=== PATIENT | female | born 1970 | race Caucasian/White ===

== ENCOUNTER 2019-08-30 18:57 | Emergency (ER) | payer MEDICAID, OTHER ==
[2019-08-30] MEDS ORDERED: IPRATROPIUM/ALBUTEROL 0.5-2.5 MG/3 ML AMPUL NEB ONE (19:03)
--- NOTE | 2019-08-30 19:06 | ER Document Report ---
ED General - General Chief Complaint: Breathing Difficulty Stated Complaint: DIFFICULTY BREATHING Time Seen by Provider: 08/30/19 19:02 - HPI Patient complains to provider of: sob Notes: patient w/ h/o copd presenting to ED for sob she reports chronic cough and no change to this she denies fever she was brought by ems and given mag and solumedrol in route she is on 2L home oxygen at home she denies a h/o pe or dvt she denies chest pain - Related Data Allergies/Adverse Reactions: Penicillins Allergy (Verified 08/30/19 19:10) Past Medical History - Social History Smoking Status: Smoker,Current Status Unk Family History: Reviewed & Not Pertinent Review of Systems - Review of Systems Constitutional: No symptoms reported EENT: No symptoms reported Cardiovascular: No symptoms reported Respiratory: Cough, Short of breath Gastrointestinal: No symptoms reported Genitourinary: No symptoms reported Female Genitourinary: No symptoms reported Musculoskeletal: No symptoms reported Skin: No symptoms reported Hematologic/Lymphatic: No symptoms reported Neurological/Psychological: No symptoms reported Physical Exam - Vital signs Vitals: Resp Pulse Ox 18 98 08/30/19 19:00 08/30/19 19:00 Interpretation: Normal - General General appearance: Appears well, Alert - HEENT Head: Normocephalic, Atraumatic Eyes: Normal Pupils: PERRL - Respiratory Respiratory status: Tachypnea Chest status: Nontender Breath sounds: Wheezing Chest palpation: Normal - Cardiovascular Rhythm: Regular Heart sounds: Normal auscultation Murmur: No - Abdominal Inspection: Normal Distension: No distension Bowel sounds: Normal Tenderness: Nontender Organomegaly: No organomegaly - Back Back: Normal, Nontender - Extremities General upper extremity: Normal inspection, Nontender, Normal color, Normal ROM, Normal temperature General lower extremity: Normal inspection, Nontender, Normal color, Normal ROM, Normal temperature, Normal weight bearing. No: Jarad's sign - Neurological Neuro grossly intact: Yes Cognition: Normal Orientation: AAOx4 [place] Coma Scale Eye Opening: Spontaneous [place] Coma Scale Verbal: Oriented [place] Coma Scale Motor: Obeys Commands Jeevan Coma Scale Total: 15 Speech: Normal Motor strength normal: LUE, RUE, LLE, RLE Sensory: Normal - Psychological Associated symptoms: Normal affect, Normal mood - Skin Skin Temperature: Warm Skin Moisture: Dry Skin Color: Normal Course - Re-evaluation Re-evalutation: 08/30/19 19:05 will give nebs and check abg while screening for other causes of sob with labs, cxr, ekg, dimer 08/30/19 21:19 workup in ED is largely unremarkable - dimer reassuring, trop/probnp reassuring, cxr clear patient feels better in ED covid is pending will dc w/ prednisone and z pack for copd exacerbation - Vital Signs Vital signs: Temp Pulse Resp BP Pulse Ox 98.7 F 100 19 119/77 96 08/30/19 19:10 08/30/19 19:10 08/30/19 19:10 08/30/19 19:10 08/30/19 19:10 - Laboratory Result Diagrams: 08/30/19 19:01 08/30/19 19:01 Laboratory results interpreted by me: 08/30/19 08/30/19 08/30/19 19:01 19:01 19:01 Hct 35.6 L RDW 14.2 H Eos % (Auto) 8.2 H Carbonic Acid 1.41 H ABG pH 7.34 L ABG pCO2 46.8 H ABG pO2 110.8 H ABG HCO3 24.5 H ABG Total CO2 25.9 H Sodium 134.8 L BUN 6 L Glucose 117 H - Diagnostic Test Radiology reviewed: Image reviewed, Reports reviewed - EKG Interpretation by Me EKG shows normal: Sinus rhythm Rate: Tachycardia Rhythm: NSR [place]/QRS: Right axis deviation Additional EKG results interpreted by me: 08/30/19 20:16 nonspecific T wave changes Discharge - Discharge Clinical Impression: COPD exacerbation Condition: Stable Disposition: HOME, SELF-CARE Instructions: Chronic Obstructive Lung Disease ([facility]), COVID-19 Guidance for Persons Under Investigation Additional Instructions: please follow up with your primary care provider as an outpatient you have been tested for COVID and you will be notified of your result as an outpatient return to the ED if your symptoms worsen in any way Prescriptions: Prednisone [Deltasone 20 mg Tablet] 3 tab PO DAILY 5 Days tablet Azithromycin [Zithromax 250 mg Tablet] 250 mg PO ASDIR PRN #6 tablet PRN Reason:
[2019-08-30 19:16] LABS: ABSOLUTE BASOPHILS # (AUTO) 0.1 10^3/uL (0.0-0.2); ABSOLUTE EOSINOPHILS # (AUTO) 0.6 10^3/uL (0.0-0.6); ABSOLUTE LYMPHOCYTES (AUTO) 1.6 10^3/uL (0.5-4.7); ABSOLUTE MONOCYTES (AUTO) 0.6 10^3/uL (0.1-1.4); ABSOLUTE NEUT (AUTO) 4.8 10^3/uL (1.7-8.2); BASOPHILS % (AUTO) 1.1 % (0-2); EOSINOPHILS % (AUTO) 8.2 % (0-6); HEMATOCRIT 35.6 % (36.0-47.0); LYMPHOCYTES % (AUTO) 20.9 % (13-45); MEAN CORPUSCULAR HEMOGLOBIN 29.8 pg (27.0-33.4); MEAN CORPUSCULAR HGB CONC 33.6 g/dL (32.0-36.0); MEAN CORPUSCULAR VOLUME 89 fl (80-97); MONOCYTES % (AUTO) 7.3 % (3-13); PLATELET COUNT 444 10^3/uL (150-450); RED BLOOD COUNT 4.03 10^6/uL (3.72-5.28); RED CELL DISTRIBUTION WIDTH 14.2 % (11.5-14.0); SEGMENTED NEUTROPHILS % (AUTO) 62.5 % (42-78); TOTAL CELLS COUNTED % (AUTO) 100 %; WHITE BLOOD COUNT 7.7 10^3/uL (4.0-10.5)
[2019-08-30 19:34] LABS: ALBUMIN 4.2 g/dL (3.5-5.0); ALKALINE PHOSPHATASE 55 U/L (38-126); ANION GAP 7 (5-19); ARTERIAL BLOOD BASE EXCESS -1.5 mmol/L; ARTERIAL BLOOD FIO2 3L; ARTERIAL BLOOD H2CO3 1.41 mmol/L (1.05-1.35); ARTERIAL BLOOD HCO3 24.5 mmol/L (20-24); ARTERIAL BLOOD O2 SATURATION 97.8 % (94-98); ARTERIAL BLOOD PCO2 46.8 mmHg (35-45); ARTERIAL BLOOD PH 7.34 (7.35-7.45); ARTERIAL BLOOD PO2 110.8 mmHg (80-100); ARTERIAL BLOOD TOTAL CO2 25.9 mmol/L (21-25); ASPARTATE AMINO TRANSFERASE 29 U/L (14-36); BILIRUBIN,TOTAL 0.4 mg/dL (0.2-1.3); BLOOD UREA NITROGEN 6 mg/dL (7-20); CALCIUM 8.9 mg/dL (8.4-10.2); CARBON DIOXIDE 27 mmol/L (22-30); CHLORIDE 101 mmol/L (98-107); GLUCOSE 117 mg/dL (75-110); POTASSIUM 4.1 mmol/L (3.6-5.0)
[2019-08-30 19:46] LABS: NT PRO BNP 79 pg/mL (<125); TROPONIN I < 0.012 ng/mL
--- NOTE | 2019-08-30 20:31 | RADIOLOGY REPORT (SQ) ---
EXAM DESCRIPTION: XR CHEST 1 VIEW COMPLETED DATE/TME: 08/30/2019 00:00 CLINICAL HISTORY: 49 years, Female, cough COMPARISON: None. NUMBER OF VIEWS: One TECHNIQUE: Single frontal view of the chest was obtained portably LIMITATIONS: None. FINDINGS: Cardiac and mediastinal contours are normal. Lungs are clear. No pleural effusion or pneumothorax. Suspect bullous emphysematous changes about the right upper lung zone. Surgical clips project over the right upper quadrant, indicating prior cholecystectomy. IMPRESSION: No acute disease. copyright 2010 [employer]- All Rights Reserved
[2019-08-30 22:05] VITALS: BP 103/90
[2019-08-30] MEDS ORDERED: ALBUTEROL SULFATE HFA (90 MCG/PUFF) 8 GM MDI IH ONE (22:17)
--- NOTE | 2019-08-31 07:57 | EKG REPORT ---
SEVERITY:- ABNORMAL ECG - SINUS TACHYCARDIA BORDERLINE RIGHT AXIS DEVIATION NONSPECIFIC T ABNORMALITIES, LATERAL LEADS : Confirmed by: Ian Baez 31-Aug-2019 07:56:18
== END 2019-08-30 22:42 | disposition home or self-care (01) ==
LOC: EDBD → ER 18:57
DX: J44.1 Chronic obstructive pulmonary disease with (acute) exacerbation (principal); Z20.828 Contact with and (suspected) exposure to other viral communicable diseases; Z88.0 Allergy status to penicillin
CPT/HCPCS: 93005; 94640; 99285; 36415; 82803; 85025; 87635; 80053; 84484; 85379; 83880; 71045; 93010; J3490; C9803

== ENCOUNTER 2020-01-08 11:28 | Inpatient (IN) | payer MEDICAID, OTHER ==
[2020-01-08 12:12] LABS: ABSOLUTE BASOPHILS # (AUTO) 0.1 10^3/uL (0.0-0.2); ABSOLUTE LYMPHOCYTES (AUTO) 1.5 10^3/uL (0.5-4.7); ABSOLUTE MONOCYTES (AUTO) 0.9 10^3/uL (0.1-1.4); ABSOLUTE NEUT (AUTO) 7.1 10^3/uL (1.7-8.2); BASOPHILS % (AUTO) 0.9 % (0-2); EOSINOPHILS % (AUTO) 9.5 % (0-6); HEMATOCRIT 32.2 % (36.0-47.0); HEMOGLOBIN 10.4 g/dL (12.0-15.5); LYMPHOCYTES % (AUTO) 14.2 % (13-45); MEAN CORPUSCULAR HEMOGLOBIN 28.2 pg (27.0-33.4); MEAN CORPUSCULAR HGB CONC 32.4 g/dL (32.0-36.0); MEAN CORPUSCULAR VOLUME 87 fl (80-97); MONOCYTES % (AUTO) 8.5 % (3-13); PLATELET COUNT 536 10^3/uL (150-450); RED BLOOD COUNT 3.71 10^6/uL (3.72-5.28); SEGMENTED NEUTROPHILS % (AUTO) 66.9 % (42-78); TOTAL CELLS COUNTED % (AUTO) 100 %; WHITE BLOOD COUNT 10.7 10^3/uL (4.0-10.5)
[2020-01-08 12:34] LABS: ALKALINE PHOSPHATASE 49 U/L (38-126); ANION GAP 5 (5-19); ASPARTATE AMINO TRANSFERASE 28 U/L (14-36); BILIRUBIN,DIRECT 0.2 mg/dL (0.0-0.4); BILIRUBIN,TOTAL 0.3 mg/dL (0.2-1.3); BLOOD UREA NITROGEN 5 mg/dL (7-20); CALCIUM 8.7 mg/dL (8.4-10.2); CARBON DIOXIDE 33 mmol/L (22-30); CHLORIDE 97 mmol/L (98-107); CREATINE KINASE 294 U/L (30-135); GLUCOSE 263 mg/dL (75-110); POTASSIUM 4.3 mmol/L (3.6-5.0); TOTAL PROTEIN 6.7 g/dL (6.3-8.2)
[2020-01-08 12:45] LABS: CREATINE KINASE MB 5.34 ng/mL (<4.55)
[2020-01-08 12:50] LABS: TROPONIN I < 0.012 ng/mL
--- NOTE | 2020-01-08 12:57 | RADIOLOGY REPORT (SQ) ---
EXAM DESCRIPTION: CHEST SINGLE VIEW IMAGES COMPLETED DATE/TIME: 01/08/2020 12:28 pm REASON FOR STUDY: sob COMPARISON: AP chest 08/30/2019 EXAM PARAMETERS: NUMBER OF VIEWS: One view. TECHNIQUE: Single frontal radiographic view of the chest acquired. RADIATION DOSE: NA LIMITATIONS: None. FINDINGS: LUNGS AND PLEURA: Upper lobes are hyperinflated and hyperlucent from obstructive disease. Pulmonary vascular markings are crowded at the. No focal infiltrates. No pleural effusion. No pneu mothorax. MEDIASTINUM AND HILAR STRUCTURES: No masses. Contour normal. HEART AND VASCULAR STRUCTURES: Heart normal in size. Normal vasculature. BONES: No acute findings. HARDWARE: None in the chest. OTHER: No other significant finding. IMPRESSION: Obstructive lung disease. No acute infiltrates. TECHNICAL DOCUMENTATION: JOB ID: [id number] 2010 [employer]- All Rights Reserved Reading location - IP/workstation name: [id number]
--- NOTE | 2020-01-08 13:39 | EKG REPORT ---
SEVERITY:- BORDERLINE ECG - SINUS TACHYCARDIA BORDERLINE RIGHT AXIS DEVIATION BORDERLINE PROLONGED QT INTERVAL : Confirmed by: Nilo Jeffers MD 08-Jan-2020 13:38:39
--- NOTE | 2020-01-08 13:44 | ER Document Report ---
Entered by LIZETTE SILVA SCRIBE 01/08/20 1220 Acting as scribe for:ADAN MURPHY MD ED Respiratory Problem - General Stated Complaint: DIFFICULTY BREATHING Time Seen by Provider: 01/08/20 12:12 Information source: Patient Notes: This 49 year old female patient presents to the emergency department today with complaints of shortness of breath which began at 2:30 AM this morning. Patient states she has had a dry non-productive cough for a month but this hasn't changed at all recently. Patient is a former smoker, stating she stopped in april of 2018. - Related Data Allergies/Adverse Reactions: Penicillins Allergy (Verified 01/08/20 12:45) Past Medical History - General Information source: Patient - Social History Smoking Status: Former Smoker Cigarette use (# per day): No Frequency of alcohol use: None Drug Abuse: None Lives with: Family Family History: Reviewed & Not Pertinent Pulmonary Medical History: Reports: Hx COPD Surgical Hx: Negative Review of Systems - Review of Systems Constitutional: No symptoms reported EENT: No symptoms reported Cardiovascular: No symptoms reported Respiratory: See HPI, Cough, Short of breath Gastrointestinal: No symptoms reported Genitourinary: No symptoms reported Female Genitourinary: No symptoms reported Musculoskeletal: No symptoms reported Skin: No symptoms reported Hematologic/Lymphatic: No symptoms reported Neurological/Psychological: No symptoms reported -: Yes All other systems reviewed and negative Physical Exam - Vital signs Vitals: Resp Pulse Ox 20 100 01/08/20 11:31 01/08/20 11:31 - Notes Notes: Physical Exam: General: Alert, appears short of breath. HEENT: Normocephalic. Atraumatic. PERRL. Extraocular movements intact. Oropharynx clear. Neck: Supple. Non-tender. Respiratory: Moderate respiratory distress. Tight diffuse inspiratory and ex piratory wheezing bilaterally. Sitting in tripod position with BiPAP on. Cardiovascular: Regular rate and rhythm. Abdominal: Normal Inspection. Non-tender. No distension. Normal Bowel Sounds. Back: No gross abnormalities. Extremities: Moves all four extremities. Upper extremities: Normal inspection. Normal ROM. Lower extremities: Normal inspection. No edema. Normal ROM. Neurological: Normal cognition. AAOx4. Normal speech. Psychological: Normal affect. Normal Mood. Skin: Warm. Dry. Normal color. Course - Re-evaluation Re-evalutation: 01/08/20 15:16 Patient continues in tripod position with BiPAP on, is still retracting diffuse tight wheezes and has not really improved much. Her oxygen saturation is 88%. Her BiPAP setting was FiO2 32%, I increased it to 40%. I am still waiting for the ABG to be collected that was ordered earlier. - Vital Signs Vital signs: Temp Pulse Resp BP Pulse Ox 97.7 F 92 12 145/73 H 100 01/10/20 00:05 01/10/20 04:56 01/10/20 04:56 01/10/20 00:05 01/10/20 04:56 - Laboratory Result Diagrams: 01/09/20 04:45 01/09/20 04:45 Laboratory results interpreted by me: 01/08/20 01/08/20 01/08/20 11:43 11:43 11:43 WBC 10.7 H RBC 3.71 L Hgb 10.4 L Hct 32.2 L RDW 16.0 H Plt Count 536 H Eos % (Auto) 9.5 H Absolute Eos (auto) 1.0 H Carbonic Acid ABG pH ABG pCO2 ABG pO2 ABG HCO3 ABG Total CO2 ABG O2 Saturation Sodium 134.6 L Chloride 97 L Carbon Dioxide 33 H BUN 5 L Creatinine 0.50 L Glucose 263 H Hemoglobin A1c % Creatine Kinase 294 H CK-MB (CK-2) 5.34 H 01/08/20 01/08/20 11:43 15:36 WBC RBC Hgb Hct RDW Plt Count Eos % (Auto) Absolute Eos (auto) Carbonic Acid 1.83 H ABG pH 7.31 L ABG pCO2 60.7 H ABG pO2 142.1 H ABG HCO3 29.5 H ABG Total CO2 31.4 H ABG O2 Saturation 98.5 H Sodium Chloride Carbon Dioxide BUN Creatinine Glucose Hemoglobin A1c % 4.4 L Creatine Kinase CK-MB (CK-2) - Diagnostic Test Radiology reviewed: Image reviewed, Reports reviewed - Chest x-ray shows COPD with no acute changes. There is some diaphragm flattening. - EKG Interpretation by Me EKG shows normal: Sinus rhythm, [place], QRS Complexes, ST-T Waves. abnormal: Intervals - Borderline prolonged QT interval Rate: Tachycardia - 112 [place]/QRS: Right axis deviation - Consults Dr. Hinds Time consulted: 16:15 Consulted provider: will come to ER Critical Care Note - Critical Care Note Total time excluding time spent on procedures (mins): 45 Comments: At least 45 minutes spent examining the patient, reviewing past and present lab work. Managing the emergent BiPAP. Multiple reevaluations for response to treatment. Time spent with consultation with hospitalist service to get the patient admitted to the hospital. Discharge - Discharge Clinical Impression: Acute exacerbation of chronic obstructive pulmonary disease (COPD), Acute on chronic respiratory failure with hypoxia and hypercapnia Condition: Fair Disposition: ADMITTED INPATIENT Admitting Provider: Lizet (Hospitalist) Unit Admitted: IMCU I personally performed the services described in the documentation, reviewed and edited the documentation which was dictated to the scribe in my presence, and it accurately records my words and actions.
[2020-01-08] MEDS ORDERED: IPRATROPIUM/ALBUTEROL 0.5-2.5 MG/3 ML AMPUL NEB ONE (13:45)
[2020-01-08] MEDS ORDERED: ALBUTEROL SULFATE 0.083% NEB 2.5 MG/3 ML AMPUL NEB ONE (15:15)
[2020-01-08 15:47] LABS: ARTERIAL BLOOD FIO2 40%; ARTERIAL BLOOD H2CO3 1.83 mmol/L (1.05-1.35); ARTERIAL BLOOD HCO3 29.5 mmol/L (20-24); ARTERIAL BLOOD O2 SATURATION 98.5 % (94-98); ARTERIAL BLOOD PCO2 60.7 mmHg (35-45); ARTERIAL BLOOD PH 7.31 (7.35-7.45); ARTERIAL BLOOD PO2 142.1 mmHg (80-100); ARTERIAL BLOOD TOTAL CO2 31.4 mmol/L (21-25)
[2020-01-08] MEDS ORDERED: PROMETHAZINE HCL INJ 25 MG/1 ML VIAL IV PRN (17:08)
[2020-01-08] MEDS ORDERED: MAG HYDROX/AL HYDROX/SIMETH SUSP 30 ML UDCUP PO PRN (17:08)
[2020-01-08] MEDS ORDERED: ACETAMINOPHEN 325 MG TABLET PO PRN (17:08)
[2020-01-08] MEDS ORDERED: MAGNESIUM HYDROXIDE SUSP 30 ML UDCUP PO PRN (17:08)
[2020-01-08] MEDS ORDERED: LORAZEPAM INJ 2 MG/1 ML VIAL IV PRN (17:29)
--- NOTE | 2020-01-08 17:34 | PDOC H&P ---
History of Present Illness Admission Date/PCP: 01/08/20 16:43 Patient complains of: Markedly increased shortness of breath History of Present Illness: BEN ADRIAN is a 49 year old female with severe COPD that history of heart disease states that since her discharge from [facility] in mid November she has had a cough and has not felt much better. At 230 this morning she began to have severe shortness of breath. She has coughing but it is not productive. She denies fever or chills. Chest x-ray shows very hyperinflated lungs but no infiltrates. White blood cell count is only 10.7. She is afebrile. She will be admitted for acute exacerbation of COPD. Past Medical History Cardiac Medical History: Reports: Hypertension Pulmonary Medical History: Reports: Asthma, Chronic Obstructive Pulmonary Disease (COPD) Psychiatric Medical History: Reports: Depression, Tobacco Dependency Past Surgical History Past Surgical History: Reports: Cholecystectomy, Tubal Ligation Social History Information Source: Patient, [facility] Records Lives with: Family Smoking Status: Former Smoker Electronic Cigarette use?: No Frequency of Alcohol Use: None Hx Recreational Drug Use: No Hx Prescription Drug Abuse: No - Advance Directive Resuscitation Status: Do Not Resuscitate Family History Family History: CAD, COPD, CVA, Hypertension, Malignancy Parental Family History Reviewed: Yes Children Family History Reviewed: Yes Sibling(s) Family History Reviewed.: Yes Medication/Allergy Home Medications: Albuterol Sulfate [Albuterol Sulfate Hfa] 2 puff IH Q4HP PRN 01/08/20 Budesonide/Formoterol Fumarate [Symbicort Hfa 160-4.5 Mcg Inhaler 6 gm] 2 puff IH Q12 01/08/20 Cetirizine HCl [Zyrtec 10 mg Tablet] 10 mg PO DAILY 01/08/20 Escitalopram Oxalate [Lexapro 10 mg Tablet] 20 mg PO QHS 01/08/20 Fluticasone Propionate [Flonase Nasal [place] 50 Mcg/[place] 16 gm] 2 spray NAREB DAILY 01/08/20 Ipratropium/Albuterol Sulfate [Duoneb 3 ml Ampul] 3 ml NEB RTQ4HP PRN 01/08/20 Lisinopril [Prinivil 5 mg Tablet] 5 mg PO DAILY 01/08/20 Montelukast Sodium [Singulair 10 mg Tablet] 10 mg PO QHS 01/08/20 Roflumilast [Daliresp 500 Mcg Tablet] 500 mcg PO DAILY 01/08/20 Tiotropium [place] [Spiriva Handihaler 5 Cap/Kit (18 Mcg/Cap)] 1 cap IH DAILY 01/08/20 Allergies/Adverse Reactions: Penicillins Allergy (Verified 01/08/20 12:45) Review of Systems All systems: reviewed and no additional remarkable complaints except as stated Cardiovascular: PRESENT: palpitations Respiratory: PRESENT: cough, dyspnea Psychiatric: PRESENT: depression Physical Exam Vital Signs: Temp Pulse Resp BP Pulse Ox 97.9 F 19 135/98 H 97 01/08/20 11:40 01/08/20 15:57 01/08/20 14:00 01/08/20 15:57 Intake & Output 01/07/20 01/08/20 01/09/20 06:59 06:59 06:59 Weight 46.266 kg General appearance: PRESENT: cooperative, severe distress, thin, well-developed Head exam: PRESENT: atraumatic, normocephalic Eye exam: PRESENT: conjunctival injection, conjunctiva pink. ABSENT: scleral icterus Ear exam: PRESENT: normal external ear exam. ABSENT: bleeding, drainage Mouth exam: PRESENT: other - BiPAP mask in place Neck exam: ABSENT: carotid bruit, JVD, lymphadenopathy Respiratory exam: PRESENT: accessory muscle use, prolonged expiratory phas, symm etrical, tachypnea, wheezes. ABSENT: rales, rhonchi Cardiovascular exam: PRESENT: +S1, +S2, tachycardia. ABSENT: bradycardia, diastolic murmur, irregular rhythm, systolic murmur GI/Abdominal exam: PRESENT: normal bowel sounds, soft. ABSENT: distended, guarding, tenderness Rectal exam: PRESENT: deferred Gentrourinary exam: ABSENT: indwelling catheter Extremities exam: ABSENT: calf tenderness, joint swelling, pedal edema Musculoskeletal exam: PRESENT: ambulatory, other - Decreased muscle mass. ABSENT: deformity, dislocation Neurological exam: PRESENT: alert, awake, oriented to person, oriented to place, oriented to time, oriented to situation, CN II-XII grossly intact. ABSENT: altered Psychiatric exam: PRESENT: appropriate affect. ABSENT: agitated, anxious Focused psych exam: ABSENT: delusional, paranoid, restlessness Skin exam: PRESENT: dry, normal color, warm. ABSENT: rash Results Laboratory Results: 01/08/20 11:43 01/08/20 11:43 01/08/20 01/08/20 01/08/20 11:43 11:43 15:36 WBC 10.7 H RBC 3.71 L Hgb 10.4 L Hct 32.2 L MCV 87 MCH 28.2 MCHC 32.4 RDW 16.0 H Plt Count 536 H Seg Neutrophils % 66.9 Carbonic Acid 1.83 H HCO3/H2CO3 Ratio 16:1 ABG pH 7.31 L ABG pCO2 60.7 H ABG pO2 142.1 H ABG HCO3 29.5 H ABG O2 Saturation 98.5 H ABG Base Excess 2.0 FiO2 40% Sodium 134.6 L Potassium 4.3 Chloride 97 L Carbon Dioxide 33 H Anion Gap 5 BUN 5 L Creatinine 0.50 L Est GFR ( Amer) > 60 Glucose 263 H Calcium 8.7 Total Bilirubin 0.3 AST 28 Alkaline Phosphatase 49 Total Protein 6.7 Albumin 4.0 01/08/20 01/08/20 11:43 11:43 Creatine Kinase 294 H CK-MB (CK-2) 5.34 H Troponin I < 0.012 Impressions: Chest X-Ray 01/08/20 11:35 IMPRESSION: Obstructive lung disease. No acute infiltrates. Assessment and Plan - Diagnosis (1) Acute on chronic respiratory failure with hypoxia and hypercapnia Is this a current diagnosis for this admission?: Yes (2) Acute exacerbation of chronic obstructive pulmonary disease (COPD) Is this a current diagnosis for this admission?: Yes (3) Depression Qualifiers: Depression Type: unspecified Qualified Code(s): F32.9 - Major depressive disorder, single episode, unspecified Is this a current diagnosis for this admission?: Yes (4) Hypertension Qualifiers: Hypertension type: essential hypertension Qualified Code(s): I10 - Essential (primary) hypertension Is this a current diagnosis for this admission?: Yes - Plan Summary Summary: Acute on chronic respiratory failure with hypoxia and hypercapnia Acute exacerbation of chronic obstructive pulmonary disease Hypertension Depression Hyperglycemia Anemia 01/08/2020 Patient was just discharged in November for a similar illness. Continue BiPAP and try and wean back to her baseline 3 L nasal cannula oxygen Nebulizer treatments both scheduled and as needed. Intravenous steroids Continue lisinopril for hypertension Continue Lexapro for depression Glucose was 263 but her hemoglobin A1c was only 4.4. Possibly related to a dextrose containing fluid that was administered. Anemia-hemoglobin is 10.4. Will check anemia studies. - Time Time Spent with patient: 35 or more minutes Medications reviewed and adjusted accordingly: Yes Anticipated Discharge Disposition: Home with Home Health Anticipated Discharge Timeframe: Unknown - Inpatient Certification Based on my medical assessment, after consideration of the patient's comorbidities, presenting symptoms, or acuity I expect that the services needed warrant INPATIENT care.: Yes I certify that my determination is in accordance with my understanding of Medicare's requirements for reasonable and necessary INPATIENT services [42 CFR 412.3e].: Yes Medical Necessity: Need Close Monitoring Due to Risk of Patient Decompensation, Need For IV Fluids, Need For Continuous Telemetry Monitoring, Need for Nebulizer Therapy and Monitoring of Response Post Hospital Care: D/C or Transfer Summary
[2020-01-08] MEDS: IPRATROPIUM BROMIDE 0.02% NEB 0.5 MG/2.5 ML AMPUL NEB SCH (20:57)
[2020-01-08] MEDS: BUDESONIDE NEB 0.5 MG/2 ML AMPUL NEB SCH (20:57)
[2020-01-08] MEDS: LEVALBUTEROL HCL NEB 1.25 MG/3 ML AMPUL NEB SCH (20:57)
[2020-01-08] MEDS: HEPARIN SOD (PORCINE) 5,000 UNIT/ML 1 ML VIAL SUBCUT SCH (23:32)
[2020-01-08] MEDS: MONTELUKAST SODIUM 10 MG TABLET PO SCH (23:32)
[2020-01-08] MEDS: ESCITALOPRAM OXALATE 10 MG TABLET PO SCH (23:33)
[2020-01-08] MEDS: FAMOTIDINE 20 MG TABLET PO SCH (23:34)
[2020-01-08] MEDS: METHYLPREDNISOLONE INJ 40 MG/1 ML SDV IV SCH (23:35)
[2020-01-08] MEDS: RINGERS SOLUTION,LACTATED 1,000 ML IV PRN (23:35)
[2020-01-09] MEDS: IPRATROPIUM BROMIDE 0.02% NEB 0.5 MG/2.5 ML AMPUL NEB SCH ×6 (00:23→19:59)
[2020-01-09] MEDS: LEVALBUTEROL HCL NEB 1.25 MG/3 ML AMPUL NEB SCH ×6 (00:23→19:59)
[2020-01-09] MEDS: MORPHINE SULFATE 10 MG/ML INJ IV PRN ×2 (02:49→22:46)
[2020-01-09 03:04] LABS: APPEARANCE,URINE SLIGHTLY-CLOUDY; BILIRUBIN,URINE NEGATIVE (NEGATIVE); COLOR,URINE YELLOW; GLUCOSE, URINE NEGATIVE (NEGATIVE); KETONES,URINE 20 mg/dL (NEGATIVE); LEUKOCYTE ESTERASE,URINE NEGATIVE (NEGATIVE); NITRITE,URINE NEGATIVE (NEGATIVE); PROTEIN,URINE 30 mg/dL (NEGATIVE); URINE SPECIFIC GRAVITY 1.009; UROBILINOGEN,URINE NEGATIVE mg/dL (<2.0)
[2020-01-09] MEDS: HEPARIN SOD (PORCINE) 5,000 UNIT/ML 1 ML VIAL SUBCUT SCH ×3 (05:32→22:47)
[2020-01-09] MEDS: METHYLPREDNISOLONE INJ 40 MG/1 ML SDV IV SCH ×3 (05:33→22:46)
[2020-01-09 05:49] LABS: HEMATOCRIT 31.2 % (36.0-47.0); HEMOGLOBIN 10.4 g/dL (12.0-15.5); MEAN CORPUSCULAR HEMOGLOBIN 28.4 pg (27.0-33.4); MEAN CORPUSCULAR HGB CONC 33.5 g/dL (32.0-36.0); MEAN CORPUSCULAR VOLUME 85 fl (80-97); PLATELET COUNT 464 10^3/uL (150-450); RED BLOOD COUNT 3.67 10^6/uL (3.72-5.28); RED CELL DISTRIBUTION WIDTH 15.9 % (11.5-14.0); WHITE BLOOD COUNT 6.7 10^3/uL (4.0-10.5)
[2020-01-09 06:09] LABS: ANION GAP 7 (5-19); BLOOD UREA NITROGEN 7 mg/dL (7-20); CALCIUM 9.4 mg/dL (8.4-10.2); CARBON DIOXIDE 32 mmol/L (22-30); CHLORIDE 99 mmol/L (98-107); GLUCOSE 127 mg/dL (75-110); POTASSIUM 5.1 mmol/L (3.6-5.0)
[2020-01-09] MEDS: BUDESONIDE NEB 0.5 MG/2 ML AMPUL NEB SCH ×2 (08:08→19:59)
[2020-01-09] MEDS: LISINOPRIL 10 MG TABLET PO SCH (11:28)
[2020-01-09] MEDS: ROFLUMILAST 500 MCG TABLET PO SCH (11:28)
[2020-01-09] MEDS: FAMOTIDINE 20 MG TABLET PO SCH ×2 (11:28→22:46)
[2020-01-09] MEDS: CETIRIZINE 10 MG TABLET PO SCH (11:28)
[2020-01-09] MEDS: FLUTICASONE NASAL SPRAY 50 MCG/SPRY 120 SPRAY/16 GM NAREB SCH (11:55)
--- NOTE | 2020-01-09 12:22 | PDOC PROGRESS REPORT ---
Subjective Date:: 01/09/20 Subjective:: Still tachypneic but she reports that she is feeling slightly better. FiO2 is d own to 30% on BiPAP. Reason For Visit: EXACERATION OF COPD,ACUTE ON CHRONIC RESPIRATORY Physical Exam Vital Signs: Temp Pulse Resp BP Pulse Ox 97.5 F 115 H 16 178/85 H 93 01/09/20 09:15 01/09/20 09:15 01/09/20 09:15 01/09/20 09:15 01/09/20 09:15 Intake & Output 01/08/20 01/09/20 01/10/20 06:59 06:59 06:59 Intake Total 120 Balance 120 Weight 46.2 kg General appearance: PRESENT: mild distress - Mild to moderate distress, thin, well-developed Head exam: PRESENT: atraumatic, normocephalic Ear exam: PRESENT: normal external ear exam. ABSENT: bleeding, drainage Mouth exam: PRESENT: other - BiPAP mask in place Neck exam: ABSENT: carotid bruit, JVD, lymphadenopathy Respiratory exam: PRESENT: symmetrical, tachypnea, wheezes. ABSENT: chest wall tenderness, rales, rhonchi Cardiovascular exam: PRESENT: +S1, +S2, tachycardia. ABSENT: bradycardia, diastolic murmur, irregular rhythm, systolic murmur GI/Abdominal exam: PRESENT: normal bowel sounds, soft. ABSENT: distended, guarding, tenderness Rectal exam: PRESENT: deferred Gentrourinary exam: ABSENT: indwelling catheter Extremities exam: ABSENT: pedal edema Musculoskeletal exam: PRESENT: other - Decreased muscle mass Neurological exam: PRESENT: alert, awake, oriented to person, oriented to place, oriented to time, oriented to situation, CN II-XII grossly intact, other - No re sting tremor. ABSENT: altered Psychiatric exam: PRESENT: appropriate affect. ABSENT: agitated, anxious Focused psych exam: ABSENT: delusional, paranoid, restlessness Skin exam: PRESENT: dry, normal color, warm. ABSENT: rash Results Laboratory Results: 01/09/20 04:45 01/09/20 04:45 01/08/20 01/08/20 01/09/20 11:43 15:36 01:45 WBC RBC Hgb Hct MCV MCH MCHC RDW Plt Count Carbonic Acid 1.83 H HCO3/H2CO3 Ratio 16:1 ABG pH 7.31 L ABG pCO2 60.7 H ABG pO2 142.1 H ABG HCO3 29.5 H ABG O2 Saturation 98.5 H ABG Base Excess 2.0 FiO2 40% Sodium 134.6 L Potassium 4.3 Chloride 97 L Carbon Dioxide 33 H Anion Gap 5 BUN 5 L Creatinine 0.50 L Est GFR ( Amer) > 60 Glucose 263 H Calcium 8.7 Magnesium Total Bilirubin 0.3 AST 28 Alkaline Phosphatase 49 Total Protein 6.7 Albumin 4.0 TSH Urine Color YELLOW Urine Appearance SLIGHTLY-CLOUDY Urine pH 7.0 Ur Specific [place] 1.009 Urine Protein 30 H Urine Glucose (UA) NEGATIVE Urine Ketones 20 H Urine Blood LARGE H Urine Nitrite NEGATIVE Ur Leukocyte Esterase NEGATIVE Urine WBC (Auto) 3 Urine RBC (Auto) 0 01/09/20 01/09/20 01/09/20 04:45 04:45 04:45 WBC 6.7 RBC 3.67 L Hgb 10.4 L Hct 31.2 L MCV 85 MCH 28.4 MCHC 33.5 RDW 15.9 H Plt Count 464 H Carbonic Acid HCO3/H2CO3 Ratio ABG pH ABG pCO2 ABG pO2 ABG HCO3 ABG O2 Saturation ABG Base Excess FiO2 Sodium 138.2 Potassium 5.1 H Chloride 99 Carbon Dioxide 32 H Anion Gap 7 BUN 7 Creatinine 0.52 Est GFR ( Amer) > 60 Glucose 127 H Calcium 9.4 Magnesium 2.4 H Total Bilirubin AST Alkaline Phosphatase Total Protein Albumin TSH 0.07 L Urine Color Urine Appearance Urine pH Ur Specific [place] Urine Protein Urine Glucose (UA) Urine Ketones Urine Blood Urine Nitrite Ur Leukocyte Esterase Urine WBC (Auto) Urine RBC (Auto) 01/08/20 01/08/20 11:43 11:43 Creatine Kinase 294 H CK-MB (CK-2) 5.34 H Troponin I < 0.012 Impressions: Chest X-Ray 01/08/20 11:35 IMPRESSION: Obstructive lung disease. No acute infiltrates. Assessment and Plan - Diagnosis (1) Acute on chronic respiratory failure with hypoxia and hypercapnia Is this a current diagnosis for this admission?: Yes (2) Acute exacerbation of chronic obstructive pulmonary disease (COPD) Is this a current diagnosis for this admission?: Yes (3) Depression Qualifiers: Depression Type: unspecified Qualified Code(s): F32.9 - Major depressive disorder, single episode, unspecified Is this a current diagnosis for this admission?: Yes (4) Hypertension Qualifiers: Hypertension type: essential hypertension Qualified Code(s): I10 - Essential (primary) hypertension Is this a current diagnosis for this admission?: Yes (5) Hyperthyroidism Is this a current diagnosis for this admission?: Yes (6) Hyperkalemia Is this a current diagnosis for this admission?: Yes - Plan Summary Summary: Acute on chronic respiratory failure with hypoxia and hypercapnia Acute exacerbation of chronic obstructive pulmonary disease Hypertension Depression Hyperglycemia Anemia Hyperkalemia 01/08/2020 Patient was just discharged in November for a similar illness. Continue BiPAP and try and wean back to her baseline 3 L nasal cannula oxygen Nebulizer treatments both scheduled and as needed. Intravenous steroids Continue lisinopril for hypertension Continue Lexapro for depression Glucose was 263 but her hemoglobin A1c was only 4.4. Possibly related to a dextrose containing fluid that was administered. Anemia-hemoglobin is 10.4. Will check anemia studies. 01/09/2020 Continue nebulizers and steroids. Continue to wean BiPAP as tolerated. Goal is 3 L/min nasal cannula which is her home oxygen therapy. Blood pressure is still elevated. We will add hydrochlorothiazide to the lisinopril. Also will discontinue the IV fluids. Hyperglycemia-glucose is down to 127. Likely a stress reaction and the steroids. Continue to monitor. Potassium is 5.1. This may be due to the IV fluids. Will discontinue IV fluids and monitor. Continue Lexapro for depression. TSH was 0.07. I have discussed this with the patient and will start methimaz ole. - Time Time Spent with patient: 15-24 minutes Medications reviewed and adjusted accordingly: Yes Anticipated Discharge Disposition: Home, Self Care Anticipated Discharge Timeframe: within 72 hours
[2020-01-09 13:36] LABS: ARTERIAL BLOOD BASE EXCESS 0 mmol/L; ARTERIAL BLOOD FIO2 30%; ARTERIAL BLOOD H2CO3 1.45 mmol/L (1.05-1.35); ARTERIAL BLOOD HCO3 25.9 mmol/L (20-24); ARTERIAL BLOOD O2 SATURATION 96.5 % (94-98); ARTERIAL BLOOD PCO2 48.3 mmHg (35-45); ARTERIAL BLOOD PH 7.35 (7.35-7.45); ARTERIAL BLOOD PO2 91.2 mmHg (80-100); ARTERIAL BLOOD TOTAL CO2 27.4 mmol/L (21-25)
[2020-01-09] MEDS: METHIMAZOLE 5 MG TABLET PO SCH ×2 (13:51→22:46)
[2020-01-09] MEDS: RINGERS SOLUTION,LACTATED 1,000 ML IV PRN (15:46)
[2020-01-09] MEDS: MONTELUKAST SODIUM 10 MG TABLET PO SCH (22:46)
[2020-01-09] MEDS: ESCITALOPRAM OXALATE 10 MG TABLET PO SCH (22:46)
[2020-01-10] MEDS: LEVALBUTEROL HCL NEB 1.25 MG/3 ML AMPUL NEB SCH ×6 (00:59→20:22)
[2020-01-10] MEDS: IPRATROPIUM BROMIDE 0.02% NEB 0.5 MG/2.5 ML AMPUL NEB SCH ×6 (00:59→20:22)
[2020-01-10 06:20] LABS: BLOOD UREA NITROGEN 12 mg/dL (7-20); CALCIUM 9.2 mg/dL (8.4-10.2); CARBON DIOXIDE 34 mmol/L (22-30); CHLORIDE 100 mmol/L (98-107); GLUCOSE 123 mg/dL (75-110); POTASSIUM 4.6 mmol/L (3.6-5.0)
[2020-01-10] MEDS: METHYLPREDNISOLONE INJ 40 MG/1 ML SDV IV SCH ×2 (06:20→13:45)
[2020-01-10] MEDS: HEPARIN SOD (PORCINE) 5,000 UNIT/ML 1 ML VIAL SUBCUT SCH ×3 (06:20→21:57)
[2020-01-10] MEDS: METHIMAZOLE 5 MG TABLET PO SCH ×3 (06:21→21:58)
[2020-01-10 06:51] LABS: ANION GAP 4 (5-19)
[2020-01-10] MEDS: BUDESONIDE NEB 0.5 MG/2 ML AMPUL NEB SCH (07:48)
[2020-01-10] MEDS: CETIRIZINE 10 MG TABLET PO SCH (09:11)
[2020-01-10] MEDS: HYDROCHLOROTHIAZIDE 12.5 MG TABLET PO SCH (09:11)
[2020-01-10] MEDS: ROFLUMILAST 500 MCG TABLET PO SCH (09:11)
[2020-01-10] MEDS: FLUTICASONE NASAL SPRAY 50 MCG/SPRY 120 SPRAY/16 GM NAREB SCH (09:11)
[2020-01-10] MEDS: LISINOPRIL 10 MG TABLET PO SCH (09:11)
[2020-01-10] MEDS: FAMOTIDINE 20 MG TABLET PO SCH ×2 (09:11→22:00)
[2020-01-10] MEDS ORDERED: LEVALBUTEROL HCL NEB 1.25 MG/3 ML AMPUL NEB PRN (13:19)
[2020-01-10] MEDS: ATENOLOL 50 MG TABLET PO SCH ×2 (13:44→21:58)
--- NOTE | 2020-01-10 14:19 | PDOC PROGRESS REPORT ---
Subjective Date:: 01/10/20 Subjective:: Feels about the same but FiO2 is down to 25%. When I sat her up to auscultate s he had a coughing jag that made her very short of breath. Reason For Visit: EXACERATION OF COPD,ACUTE ON CHRONIC RESPIRATORY Physical Exam Vital Signs: Temp Pulse Resp BP Pulse Ox 97.4 F 133 H 18 155/94 H 98 01/10/20 12:49 01/10/20 13:33 01/10/20 13:33 01/10/20 12:49 01/10/20 13:33 Intake & Output 01/09/20 01/10/20 01/11/20 06:59 06:59 06:59 Intake Total 120 2131 Balance 120 2131 Weight 46.2 kg 46 kg General appearance: PRESENT: cooperative, thin, well-developed, other - Coughing spasm caused moderate to severe distress Head exam: PRESENT: atraumatic, normocephalic Ear exam: PRESENT: normal external ear exam. ABSENT: bleeding, drainage Mouth exam: PRESENT: other - BiPAP mask in place Respiratory exam: PRESENT: prolonged expiratory phas, symmetrical, tachypnea, wheezes - Sporadic, other - Breath sounds are tight. ABSENT: rales, rhonchi Cardiovascular exam: PRESENT: +S1, +S2, tachycardia. ABSENT: bradycardia, diastolic murmur, irregular rhythm, systolic murmur GI/Abdominal exam: PRESENT: normal bowel sounds, soft. ABSENT: tenderness Rectal exam: PRESENT: deferred Gentrourinary exam: ABSENT: indwelling catheter Extremities exam: ABSENT: pedal edema Musculoskeletal exam: PRESENT: other - Decreased muscle mass Neurological exam: PRESENT: alert, awake, oriented to person, oriented to place, oriented to time, oriented to situation, CN II-XII grossly intact. ABSENT: altered Psychiatric exam: PRESENT: anxious - Anxious appearing. ABSENT: agitated Focused psych exam: ABSENT: delusional, paranoid, restlessness Results Laboratory Results: 01/09/20 04:45 01/10/20 04:40 01/10/20 04:40 Sodium 138.4 Potassium 4.6 Chloride 100 Carbon Dioxide 34 H Anion Gap 4 L BUN 12 Creatinine 0.55 Est GFR ( Amer) > 60 Glucose 123 H Calcium 9.2 01/08/20 01/08/20 11:43 11:43 Creatine Kinase 294 H CK-MB (CK-2) 5.34 H Troponin I < 0.012 Impressions: Chest X-Ray 01/08/20 11:35 IMPRESSION: Obstructive lung disease. No acute infiltrates. Assessment and Plan - Diagnosis (1) Acute on chronic respiratory failure with hypoxia and hypercapnia Is this a current diagnosis for this admission?: Yes (2) Acute exacerbation of chronic obstructive pulmonary disease (COPD) Is this a current diagnosis for this admission?: Yes (3) Depression Qualifiers: Depression Type: unspecified Qualified Code(s): F32.9 - Major depressive disorder, single episode, unspecified Is this a current diagnosis for this admission?: Yes (4) Hypertension Qualifiers: Hypertension type: essential hypertension Qualified Code(s): I10 - Essential (primary) hypertension Is this a current diagnosis for this admission?: Yes (5) Hyperthyroidism Is this a current diagnosis for this admission?: Yes (6) Hyperkalemia Is this a current diagnosis for this admission?: Yes - Plan Summary Summary: Acute on chronic respiratory failure with hypoxia and hypercapnia Acute exacerbation of chronic obstructive pulmonary disease Hypertension Depression Hyperglycemia Anemia Hyperkalemia 01/08/2020 Patient was just discharged in November for a similar illness. Continue BiPAP and try and wean back to her baseline 3 L nasal cannula oxygen Nebulizer treatments both scheduled and as needed. Intravenous steroids Continue lisinopril for hypertension Continue Lexapro for depression Glucose was 263 but her hemoglobin A1c was only 4.4. Possibly related to a dextrose containing fluid that was administered. Anemia-hemoglobin is 10.4. Will check anemia studies. 01/09/2020 Continue nebulizers and steroids. Continue to wean BiPAP as tolerated. Goal is 3 L/min nasal cannula which is her home oxygen therapy. Blood pressure is still elevated. We will add hydrochlorothiazide to the lisinopril. Also will discontinue the IV fluids. Hyperglycemia-glucose is down to 127. Likely a stress reaction and the steroids. Continue to monitor. Potassium is 5.1. This may be due to the IV fluids. Will discontinue IV fluids and monitor. Continue Lexapro for depression. TSH was 0.07. I have discussed this with the patient and will start methimazol e. 01/10/2020 COPD-continue every 4 hours scheduled nebulizers with every 2 hour as needed. I increase the Solu-Medrol to 80 mg every 8 and discontinue the budesonide. Hypertension-continue lisinopril with hydrochlorothiazide. Blood pressure is still slightly high. Patient is also tachycardic and I added atenolol for the tachycardia related to the hyperthyroidism. The coughing spasms have a devastating effect on her breathing. We will institute a trial of guaifenesin with codeine to see if this helps. Hopefully the increased steroids will help as well. She will continue Daliresp, Zyrtec and Singulair as well. Her glucose is now 123. Renal function is normal. Tachypnea is causing some alkalosis. Because eating causes significant shortness of breath I have ordered Ensure with each meal. This may be easier to consume and provide calories. Consider pulmonary consult tomorrow - Time Time Spent with patient: 15-24 minutes Medications reviewed and adjusted accordingly: Yes Anticipated Discharge Disposition: Home, Self Care Anticipated Discharge Timeframe: within 72 hours
[2020-01-10] MEDS ORDERED: METHYLPREDNISOLONE INJ 125 MG/2 ML SDV IV SCH (14:30)
[2020-01-10] MEDS: METHYLPREDNISOLONE INJ 125 MG/2 ML SDV IV SCH (21:53)
[2020-01-10] MEDS: MORPHINE SULFATE 10 MG/ML INJ IV PRN (21:58)
[2020-01-10] MEDS: ESCITALOPRAM OXALATE 10 MG TABLET PO SCH (21:58)
[2020-01-10] MEDS: MONTELUKAST SODIUM 10 MG TABLET PO SCH (21:58)
[2020-01-10] MEDS ORDERED: METHYLPREDNISOLONE INJ 40 MG/1 ML SDV IV SCH (22:00)
[2020-01-11] MEDS: IPRATROPIUM BROMIDE 0.02% NEB 0.5 MG/2.5 ML AMPUL NEB SCH ×7 (01:08→23:56)
[2020-01-11] MEDS: LEVALBUTEROL HCL NEB 1.25 MG/3 ML AMPUL NEB SCH ×7 (01:08→23:56)
[2020-01-11] MEDS: HEPARIN SOD (PORCINE) 5,000 UNIT/ML 1 ML VIAL SUBCUT SCH ×3 (05:41→22:30)
[2020-01-11] MEDS: METHYLPREDNISOLONE INJ 125 MG/2 ML SDV IV SCH ×3 (05:42→22:30)
[2020-01-11] MEDS: METHIMAZOLE 5 MG TABLET PO SCH ×3 (05:42→22:30)
[2020-01-11] MEDS: HYDROCHLOROTHIAZIDE 12.5 MG TABLET PO SCH (08:56)
--- NOTE | 2020-01-11 10:25 | PDOC PROGRESS REPORT ---
Subjective Date:: 01/11/20 Subjective:: Patient is actually on nasal cannula this morning at 3 L. She was on 5 L earlie r. She has been off the BiPAP this morning. She still reports that with coughing spasms she desaturates rapidly. She also experiences weakness after a coughing spasm. Reason For Visit: EXACERATION OF COPD,ACUTE ON CHRONIC RESPIRATORY Physical Exam Vital Signs: Temp Pulse Resp BP Pulse Ox 98.3 F 89 19 131/66 H 93 01/11/20 08:48 01/11/20 08:48 01/11/20 08:48 01/11/20 08:48 01/11/20 08:48 Pulse Oximeter Nocturnal Start: 01/10/20 19:16 Freq: RTQ4 Status: Complete Protocol: Document 01/11/20 04:50 DBE (Rec: 01/11/20 05:10 DBE [id number]) Nocturnal Pulse Oximetry Equipment Usage Equipment in Use Oxygen Delivery Method (includes room Nasal Cannula air) O2 Sat by Pulse Oximetry (92-100) 100 Continuous SpO2 Machine # 3 Other pt desatted to low 80s on 3L/ NC and the nurse increased her O2 to 4L/NC Intake & Output 01/10/20 01/11/20 01/12/20 06:59 06:59 06:59 Intake Total 2131 475 Balance 2131 475 Weight 46 kg 46.2 kg General appearance: PRESENT: cooperative, mild distress, thin, well-developed Head exam: PRESENT: atraumatic, normocephalic Mouth exam: PRESENT: moist, tongue midline Respiratory exam: PRESENT: prolonged expiratory phas, symmetrical, tachypnea, wheezes. ABSENT: rales, rhonchi Cardiovascular exam: PRESENT: RRR, +S1, +S2. ABSENT: bradycardia, diastolic murmur, irregular rhythm, systolic murmur, tachycardia GI/Abdominal exam: PRESENT: normal bowel sounds, soft. ABSENT: distended, tenderness Rectal exam: PRESENT: deferred Gentrourinary exam: ABSENT: indwelling catheter Extremities exam: ABSENT: pedal edema Musculoskeletal exam: PRESENT: ambulatory - Limited by hypoxia. ABSENT: deformity, dislocation Neurological exam: PRESENT: alert, awake, oriented to person, oriented to place, oriented to time, oriented to situation, CN II-XII grossly intact. ABSENT: altered Psychiatric exam: ABSENT: agitated, anxious Focused psych exam: ABSENT: delusional, paranoid, restlessness Results Laboratory Results: 01/09/20 04:45 01/10/20 04:40 01/08/20 01/08/20 11:43 11:43 Creatine Kinase 294 H CK-MB (CK-2) 5.34 H Troponin I < 0.012 Impressions: Chest X-Ray 01/08/20 11:35 IMPRESSION: Obstructive lung disease. No acute infiltrates. Assessment and Plan - Diagnosis (1) Acute on chronic respiratory failure with hypoxia and hypercapnia Is this a current diagnosis for this admission?: Yes (2) Acute exacerbation of chronic obstructive pulmonary disease (COPD) Is this a current diagnosis for this admission?: Yes (3) Depression Qualifiers: Depression Type: unspecified Qualified Code(s): F32.9 - Major depressive disorder, single episode, unspecified Is this a current diagnosis for this admission?: Yes (4) Hypertension Qualifiers: Hypertension type: essential hypertension Qualified Code(s): I10 - Essential (primary) hypertension Is this a current diagnosis for this admission?: Yes (5) Hyperthyroidism Is this a current diagnosis for this admission?: Yes (6) Hyperkalemia Is this a current diagnosis for this admission?: Yes - Plan Summary Summary: Acute on chronic respiratory failure with hypoxia and hypercapnia Acute exacerbation of chronic obstructive pulmonary disease Hypertension Depression Hyperglycemia Anemia Hyperkalemia 01/08/2020 Patient was just discharged in November for a similar illness. Continue BiPAP and try and wean back to her baseline 3 L nasal cannula oxygen Nebulizer treatments both scheduled and as needed. Intravenous steroids Continue lisinopril for hypertension Continue Lexapro for depression Glucose was 263 but her hemoglobin A1c was only 4.4. Possibly related to a dextrose containing fluid that was administered. Anemia-hemoglobin is 10.4. Will check anemia studies. 01/09/2020 Continue nebulizers and steroids. Continue to wean BiPAP as tolerated. Goal is 3 L/min nasal cannula which is her home oxygen therapy. Blood pressure is still elevated. We will add hydrochlorothiazide to the lisinopril. Also will discontinue the IV fluids. Hyperglycemia-glucose is down to 127. Likely a stress reaction and the steroids. Continue to monitor. Potassium is 5.1. This may be due to the IV fluids. Will discontinue IV fluids and monitor. Continue Lexapro for depression. TSH was 0.07. I have discussed this with the patient and will start methimazole. 01/10/2020 COPD-continue every 4 hours scheduled nebulizers with every 2 hour as needed. I increase the Solu-Medrol to 80 mg every 8 and discontinue the budesonide. Hypertension-continue lisinopril with hydrochlorothiazide. Blood pressure is still slightly high. Patient is also tachycardic and I added atenolol for the t achycardia related to the hyperthyroidism. The coughing spasms have a devastating effect on her breathing. We will institute a trial of guaifenesin with codeine to see if this helps. Hopefully the increased steroids will help as well. She will continue Daliresp, Zyrtec and Singulair as well. Her glucose is now 123. Renal function is normal. Tachypnea is causing some alkalosis. Because eating causes significant shortness of breath I have ordered Ensure with each meal. This may be easier to consume and provide calories. Consider pulmonary consult tomorrow 01/11/2020 COPD with respiratory failure-continue current nebulizer schedule. Solu-Medrol increased yesterday. Seems to be benefiting the patient. She is on nasal cannula this morning. Guaifenesin with codeine has been ordered as needed. I have asked the nurse to be closely monitoring the patient and use the as needed dose more liberally. Hyperthyroidism-with the atenolol and methimazole the patient is no longer tachycardic. She is still slightly hypertensive but improved. Glucose appears to be normalizing. Nocturnal oximetry ordered. The patient will benefit from CPAP at home. Will consult pulmonology when available. Interim summary: Patient with severe/end-stage COPD presents with exacerbation of COPD. Was BiPAP dependent for the first 36 to 48 hours. This morning she is on nasal cannula but tenuous. Nocturnal oximetry ordered as the patient would benefit from BiPAP at home. Obtain pulmonary consult when available. Was also found to be hyper thyroid. Started on atenolol and methimazole with some improvement. Will need to follow-up with endocrinology as an outpatient. Hypertension-added hydrochlorothiazide to her lisinopril. Hyperglycemia-glucose was elevated initially. Subsequently it is normal. Hemoglobin A1c was 4.4. - Time Time Spent with patient: 15-24 minutes Medications reviewed and adjusted accordingly: Yes Anticipated Discharge Disposition: Home with Home Health Anticipated Discharge Timeframe: within 72 hours
[2020-01-11] MEDS: ATENOLOL 50 MG TABLET PO SCH ×2 (11:55→22:30)
[2020-01-11] MEDS: FAMOTIDINE 20 MG TABLET PO SCH ×2 (11:55→22:29)
[2020-01-11] MEDS: LISINOPRIL 10 MG TABLET PO SCH (11:55)
[2020-01-11] MEDS: CETIRIZINE 10 MG TABLET PO SCH (11:55)
[2020-01-11] MEDS: GUAIFENESIN/CODEINE PHOS 100-10 MG/ 5 ML UDC PO PRN (11:56)
[2020-01-11] MEDS: ROFLUMILAST 500 MCG TABLET PO SCH (11:56)
[2020-01-11] MEDS: FLUTICASONE NASAL SPRAY 50 MCG/SPRY 120 SPRAY/16 GM NAREB SCH (11:59)
[2020-01-11] MEDS: ESCITALOPRAM OXALATE 10 MG TABLET PO SCH (22:29)
[2020-01-11] MEDS: MONTELUKAST SODIUM 10 MG TABLET PO SCH (22:30)
[2020-01-12] MEDS: LEVALBUTEROL HCL NEB 1.25 MG/3 ML AMPUL NEB SCH ×2 (04:48→07:49)
[2020-01-12] MEDS: IPRATROPIUM BROMIDE 0.02% NEB 0.5 MG/2.5 ML AMPUL NEB SCH ×5 (04:48→20:21)
[2020-01-12] MEDS: METHIMAZOLE 5 MG TABLET PO SCH ×3 (06:16→22:24)
[2020-01-12] MEDS: HEPARIN SOD (PORCINE) 5,000 UNIT/ML 1 ML VIAL SUBCUT SCH ×3 (06:16→22:24)
[2020-01-12] MEDS: METHYLPREDNISOLONE INJ 125 MG/2 ML SDV IV SCH (06:16)
[2020-01-12] MEDS: FAMOTIDINE 20 MG TABLET PO SCH ×2 (09:44→22:25)
[2020-01-12] MEDS: CETIRIZINE 10 MG TABLET PO SCH (09:45)
[2020-01-12] MEDS: HYDROCHLOROTHIAZIDE 12.5 MG TABLET PO SCH (09:45)
[2020-01-12] MEDS: ATENOLOL 50 MG TABLET PO SCH ×2 (09:45→22:25)
[2020-01-12] MEDS: LISINOPRIL 10 MG TABLET PO SCH (09:45)
[2020-01-12] MEDS: ROFLUMILAST 500 MCG TABLET PO SCH (09:46)
[2020-01-12] MEDS: FLUTICASONE NASAL SPRAY 50 MCG/SPRY 120 SPRAY/16 GM NAREB SCH (09:46)
[2020-01-12] MEDS: GUAIFENESIN/CODEINE PHOS 100-10 MG/ 5 ML UDC PO PRN (09:51)
[2020-01-12] MEDS ORDERED: LEVALBUTEROL HCL NEB 1.25 MG/3 ML AMPUL NEB PRN (10:45)
--- NOTE | 2020-01-12 10:48 | PDOC PROGRESS REPORT ---
Subjective Date:: 01/12/20 Subjective:: 49 year old female with severe COPD that history of heart disease states that si nce her discharge from [facility] in mid November she has had a cough and has not felt much better. At 230 this morning she began to have severe shortness of breath. She has coughing but it is not productive. She denies fever or chills. Chest x-ray shows very hyperinflated lungs but no infiltrates. White blood cell count is only 10.7. She is afebrile. She will be admitted for acute exacerbation of COPD. 01/09/20-Still tachypneic but she reports that she is feeling slightly better. FiO2 is down to 30% on BiPAP. 01/10/20-Feels about the same but FiO2 is down to 25%. When I sat her up to auscultate she had a coughing jag that made her very short of breath. 01/11/20-Patient is actually on nasal cannula this morning at 3 L. She was on 5 L earlier. She has been off the BiPAP this morning. She still reports that with coughing spasms she desaturates rapidly. She also experiences weakness after a coughing spasm. 01/[id number]-old female with history of COPD on 3 L of oxygen admitted with COPD exacerbation. Pulse ox is 99% on 3 L this morning. Patient is on 3 L of oxygen at home. 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 Patient prefers to stay another day to continue the present management. No acute events in the last 24 hours and patient is afebrile. Reason For Visit: EXACERATION OF COPD,ACUTE ON CHRONIC RESPIRATORY Physical Exam Vital Signs: Temp Pulse Resp BP Pulse Ox 97.5 F 72 11 L 156/84 H 97 01/12/20 04:32 01/12/20 07:50 01/12/20 07:50 01/12/20 04:32 01/12/20 07:50 Pulse Oximeter Nocturnal Start: 01/10/20 19:16 Freq: RTQ4 Status: Complete Protocol: Document 01/11/20 04:50 DBE (Rec: 01/11/20 05:10 DBE [id number]) Nocturnal Pulse Oximetry Equipment Usage Equipment in Use Oxygen Delivery Method (includes room Nasal Cannula air) O2 Sat by Pulse Oximetry (92-100) 100 Continuous SpO2 Machine # 3 Other pt desatted to low 80s on 3L/ NC and the nurse increased her O2 to 4L/NC Intake & Output 01/11/20 01/12/20 01/13/20 06:59 06:59 06:59 Intake Total 475 500 Balance 475 500 Weight 46.2 kg 47.5 kg General appearance: PRESENT: no acute distress, cooperative Head exam: PRESENT: atraumatic Eye exam: PRESENT: PERRLA Ear exam: PRESENT: normal external ear exam Mouth exam: PRESENT: neck supple Teeth exam: ABSENT: poor dentation Neck exam: ABSENT: carotid bruit, JVD, lymphadenopathy, thyromegaly Respiratory exam: PRESENT: decreased breath sounds Cardiovascular exam: PRESENT: RRR. ABSENT: diastolic murmur, rubs, systolic murmur GI/Abdominal exam: PRESENT: normal bowel sounds, soft. ABSENT: distended, guarding, mass, organolmegaly, rebound, tenderness Rectal exam: PRESENT: deferred Extremities exam: PRESENT: full ROM. ABSENT: calf tenderness, clubbing, pedal edema Neurological exam: PRESENT: alert, awake, oriented to person, oriented to place, oriented to time, oriented to situation, CN II-XII grossly intact. ABSENT: motor sensory deficit Psychiatric exam: PRESENT: appropriate affect, normal mood. ABSENT: homicidal ideation, suicidal ideation Results Laboratory Results: 01/09/20 04:45 01/10/20 04:40 01/08/20 01/08/20 11:43 11:43 Creatine Kinase 294 H CK-MB (CK-2) 5.34 H Troponin I < 0.012 Impressions: Chest X-Ray 01/08/20 11:35 IMPRESSION: Obstructive lung disease. No acute infiltrates. Assessment and Plan - Diagnosis (1) Acute exacerbation of chronic obstructive pulmonary disease (COPD) Is this a current diagnosis for this admission?: Yes Plan: 01/12/[id number]-old female chronic smoker with history of COPD on 3 L of oxygen admitted with COPD exacerbation. Resolving. Pulse ox is 99% on 3 L this morning. At this time we are able to wean her off from the BiPAP. Patient is presently on IV Solu-Medrol 80 mg every 8 hours plan is to decrease the dose to 40 every 8 hours. Continue Xopenex nebulizations every 4 hr prnas needed. To continue Singulair 10 mg p.o. nightly, Daliresp 500 mcg p.o. daily. (2) Acute on chronic respiratory failure with hypoxia and hypercapnia Is this a current diagnosis for this admission?: Yes Plan: 01/12/20-patient has history of COPD on 3 L of oxygen admitted with acute on chronic respiratory failure with hypoxia and hypercapnia. Plan is to decrease the dose of IV Solu-Medrol to continue Xopenex nebulizations. (3) Hypertension Qualifiers: Hypertension type: essential hypertension Qualified Code(s): I10 - Essential (primary) hypertension Is this a current diagnosis for this admission?: No Plan: 01/12/2020-patient has history of chronic essential hypertension blood pressure today is 156/84. Stable. (4) Hyperkalemia Is this a current diagnosis for this admission?: Yes Plan: 01/12/2020-latest serum potassium is 4.6. Within normal limits. 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 - Plan Summary Summary: Acute on chronic respiratory failure with hypoxia and hypercapnia Acute exacerbation of chronic obstructive pulmonary disease Hypertension Depression Hyperglycemia Anemia Hyperkalemia 01/08/2020 Patient was just discharged in November for a similar illness. Continue BiPAP and try and wean back to her baseline 3 L nasal cannula oxygen Nebulizer treatments both scheduled and as needed. Intravenous steroids Continue lisinopril for hypertension Continue Lexapro for depression Glucose was 263 but her hemoglobin A1c was only 4.4. Possibly related to a dextrose containing fluid that was administered. Anemia-hemoglobin is 10.4. Will check anemia studies. 01/09/2020 Continue nebulizers and steroids. Continue to wean BiPAP as tolerated. Goal is 3 L/min nasal cannula which is her home oxygen therapy. Blood pressure is still elevated. We will add hydrochlorothiazide to the lisino pril. Also will discontinue the IV fluids. Hyperglycemia-glucose is down to 127. Likely a stress reaction and the steroids. Continue to monitor. Potassium is 5.1. This may be due to the IV fluids. Will discontinue IV fluids and monitor. Continue Lexapro for depression. TSH was 0.07. I have discussed this with the patient and will start methimazole. 01/10/2020 COPD-continue every 4 hours scheduled nebulizers with every 2 hour as needed. I increase the Solu-Medrol to 80 mg every 8 and discontinue the budesonide. Hypertension-continue lisinopril with hydrochlorothiazide. Blood pressure is still slightly high. Patient is also tachycardic and I added atenolol for the tachycardia related to the hyperthyroidism. The coughing spasms have a devastating effect on her breathing. We will in stitute a trial of guaifenesin with codeine to see if this helps. Hopefully the increased steroids will help as well. She will continue Daliresp, Zyrtec and Singulair as well. Her glucose is now 123. Renal function is normal. Tachypnea is causing some alkalosis. Because eating causes significant shortness of breath I have ordered Ensure with each meal. This may be easier to consume and provide calories. Consider pulmonary consult tomorrow 01/11/2020 COPD with respiratory failure-continue current nebulizer schedule. Solu-Medrol increased yesterday. Seems to be benefiting the patient. She is on nasal cannula this morning. Guaifenesin with codeine has been ordered as needed. I have asked the nurse to be closely monitoring the patient and use the as needed dose more liberally. Hyperthyroidism-with the atenolol and methimazole the patient is no longer tachycardic. She is still slightly hypertensive but improved. Glucose appears to be normalizing. Nocturnal oximetry ordered. The patient will benefit from CPAP at home. Will consult pulmonology when available. Interim summary: Patient with severe/end-stage COPD presents with exacerbation of COPD. Was BiPAP dependent for the first 36 to 48 hours. This morning she is on nasal cannula but tenuous. Nocturnal oximetry ordered as the patient would benefit from BiPAP at home. Obtain pulmonary consult when available. Was also found to be hyper thyroid. Started on atenolol and methimazole with some improvement. Will need to follow-up with endocrinology as an outpatient. Hypertension-added hydrochlorothiazide to her lisinopril. Hyperglycemia-glucose was elevated initially. Subsequently it is normal. Hemoglobin A1c was 4.4. - Time Anticipated Discharge Disposition: Home, Self Care Anticipated Discharge Timeframe: within 48 hours
[2020-01-12] MEDS ORDERED: METHYLPREDNISOLONE INJ 125 MG/2 ML SDV IV SCH (14:00)
[2020-01-12] MEDS: METHYLPREDNISOLONE INJ 40 MG/1 ML SDV IV SCH ×2 (14:25→22:25)
[2020-01-12] MEDS: ESCITALOPRAM OXALATE 10 MG TABLET PO SCH (22:24)
[2020-01-12] MEDS: MONTELUKAST SODIUM 10 MG TABLET PO SCH (22:25)
[2020-01-13] MEDS: IPRATROPIUM BROMIDE 0.02% NEB 0.5 MG/2.5 ML AMPUL NEB SCH ×4 (00:09→12:45)
[2020-01-13] MEDS: METHIMAZOLE 5 MG TABLET PO SCH (05:23)
[2020-01-13] MEDS: HEPARIN SOD (PORCINE) 5,000 UNIT/ML 1 ML VIAL SUBCUT SCH (05:23)
[2020-01-13] MEDS: METHYLPREDNISOLONE INJ 40 MG/1 ML SDV IV SCH (05:23)
[2020-01-13 07:42] LABS: ABSOLUTE LYMPHOCYTES (AUTO) 0.6 10^3/uL (0.5-4.7); ABSOLUTE MONOCYTES (AUTO) 0.8 10^3/uL (0.1-1.4); ABSOLUTE NEUT (AUTO) 7.2 10^3/uL (1.7-8.2); BASOPHILS % (AUTO) 0.2 % (0-2); HEMATOCRIT 33.9 % (36.0-47.0); MEAN CORPUSCULAR HEMOGLOBIN 27.7 pg (27.0-33.4); MEAN CORPUSCULAR HGB CONC 32.5 g/dL (32.0-36.0); MEAN CORPUSCULAR VOLUME 85 fl (80-97); MONOCYTES % (AUTO) 9.1 % (3-13); PLATELET COUNT 423 10^3/uL (150-450); RED BLOOD COUNT 3.97 10^6/uL (3.72-5.28); RED CELL DISTRIBUTION WIDTH 15.5 % (11.5-14.0); SEGMENTED NEUTROPHILS % (AUTO) 83.7 % (42-78); TOTAL CELLS COUNTED % (AUTO) 100 %; WHITE BLOOD COUNT 8.6 10^3/uL (4.0-10.5)
[2020-01-13 08:03] LABS: ALBUMIN 4.1 g/dL (3.5-5.0); ALKALINE PHOSPHATASE 41 U/L (38-126); ANION GAP 6 (5-19); ASPARTATE AMINO TRANSFERASE 57 U/L (14-36); BILIRUBIN,DIRECT 0.3 mg/dL (0.0-0.4); BILIRUBIN,TOTAL 0.6 mg/dL (0.2-1.3); BLOOD UREA NITROGEN 16 mg/dL (7-20); CALCIUM 9.3 mg/dL (8.4-10.2); CARBON DIOXIDE 36 mmol/L (22-30); CHLORIDE 95 mmol/L (98-107); GLUCOSE 136 mg/dL (75-110); POTASSIUM 4.7 mmol/L (3.6-5.0); TOTAL PROTEIN 6.6 g/dL (6.3-8.2)
[2020-01-13] MEDS: HYDROCHLOROTHIAZIDE 12.5 MG TABLET PO SCH (09:15)
[2020-01-13] MEDS: FAMOTIDINE 20 MG TABLET PO SCH (09:16)
[2020-01-13] MEDS: CETIRIZINE 10 MG TABLET PO SCH (09:16)
[2020-01-13] MEDS: ROFLUMILAST 500 MCG TABLET PO SCH (09:16)
[2020-01-13] MEDS: ATENOLOL 50 MG TABLET PO SCH (09:16)
[2020-01-13] MEDS: LISINOPRIL 10 MG TABLET PO SCH (09:16)
[2020-01-13] MEDS: FLUTICASONE NASAL SPRAY 50 MCG/SPRY 120 SPRAY/16 GM NAREB SCH (09:17)
--- NOTE | 2020-01-13 12:13 | PDOC DISCHARGE SUMMARY ---
Impression - Admit/DC Date/PCP Admission Date/Primary Care Provider: 01/08/20 16:43 Discharge Date: 01/13/20 - Discharge Diagnosis (1) Acute exacerbation of chronic obstructive pulmonary disease (COPD) Is this a current diagnosis for this admission?: Yes (2) Acute on chronic respiratory failure with hypoxia and hypercapnia Is this a current diagnosis for this admission?: Yes (3) Hypertension Is this a current diagnosis for this admission?: No (4) Hyperkalemia Is this a current diagnosis for this admission?: Yes (5) Depression Is this a current diagnosis for this admission?: Yes (6) Hyperthyroidism Is this a current diagnosis for this admission?: Yes - Assessment Summary: Acute on chronic respiratory failure with hypoxia and hypercapnia Acute exacerbation of chronic obstructive pulmonary disease Hypertension Depression Hyperglycemia Anemia Hyperkalemia 01/08/2020 Patient was just discharged in November for a similar illness. Continue BiPAP and try and wean back to her baseline 3 L nasal cannula oxygen Nebulizer treatments both scheduled and as needed. Intravenous steroids Continue lisinopril for hypertension Continue Lexapro for depression Glucose was 263 but her hemoglobin A1c was only 4.4. Possibly related to a dextrose containing fluid that was administered. Anemia-hemoglobin is 10.4. Will check anemia studies. 01/09/2020 Continue nebulizers and steroids. Continue to wean BiPAP as tolerated. Goal is 3 L/min nasal cannula which is her home oxygen therapy. Blood pressure is still elevated. We will add hydrochlorothiazide to the lisinopril. Also will discontinue the IV fluids. Hyperglycemia-glucose is down to 127. Likely a stress reaction and the steroids. Continue to monitor. Potassium is 5.1. This may be due to the IV fluids. Will discontinue IV fluids and monitor. Continue Lexapro for depression. TSH was 0.07. I have discussed this with the patient and will start methimazole. 01/10/2020 COPD-continue every 4 hours scheduled nebulizers with every 2 hour as needed. I increase the Solu-Medrol to 80 mg every 8 and discontinue the budesonide. Hypertension-continue lisinopril with hydrochlorothiazide. Blood pressure is still slightly high. Patient is also tachycardic and I added atenolol for the tachycardia related to the hyperthyroidism. The coughing spasms have a devastating effect on her breathing. We will institute a trial of guaifenesin with codeine to see if this helps. Hopefully the increased steroids will help as well. She will continue Daliresp, Zyrtec and Singulair as well. Her glucose is now 123. Renal function is normal. Tachypnea is causing some alkalosis. Because eating causes significant shortness of breath I have ordered Ensure with each meal. This may be easier to consume and provide calories. Consider pulmonary consult tomorrow 01/11/2020 COPD with respiratory failure-continue current nebulizer schedule. Solu-Medrol increased yesterday. Seems to be benefiting the patient. She is on nasal cannula this morning. Guaifenesin with codeine has been ordered as needed. I have asked the nurse to be closely monitoring the patient and use the as needed dose more liberally. Hyperthyroidism-with the atenolol and methimazole the patient is no longer tachycardic. She is still slightly hypertensive but improved. Glucose appears to be normalizing. Nocturnal oximetry ordered. The patient will benefit from CPAP at home. Will consult pulmonology when available. Interim summary: Patient with severe/end-stage COPD presents with exacerbation of COPD. Was BiPAP dependent for the first 36 to 48 hours. This morning she is on nasal cannula but tenuous. Nocturnal oximetry ordered as the patient would benefit from BiPAP at home. Obtain pulmonary consult when available. Was also found to be hyper thyroid. Started on atenolol and methimazole with some improvement. Will need to follow-up with endocrinology as an outpatient. Hypertension-added hydrochlorothiazide to her lisinopril. Hyperglycemia-glucose was elevated initially. Subsequently it is normal. Hemoglobin A1c was 4.4. (1) Acute exacerbation of chronic obstructive pulmonary disease (COPD) Is this a current diagnosis for this admission?: Yes Plan: 01/12/[id number]-eshu-old female chronic smoker with history of COPD on 3 L of oxygen admitted with COPD exacerbation. Resolving. Pulse ox is 99% on 3 L this morning. At this time we are able to wean her off from the BiPAP. Patient is presently on IV Solu-Medrol 80 mg every 8 hours plan is to decrease the dose to 40 every 8 hours. Continue Xopenex nebulizations every 4 hr prnas needed. To continue Singulair 10 mg p.o. nightly, Daliresp 500 mcg p.o. daily. 01/13/2020-patient with history of COPD on 3 L of oxygen, chronic smoker admitted with acute on chronic COPD exacerbation. Patient on 3 L of oxygen at home. Pulse ox is 97% 3 L today. Acute exacerbation COPD resolving. Patient is advised to follow-up with her client renewal specialist in [place] next week (2) Acute on chronic respiratory failure with hypoxia and hypercapnia Is this a current diagnosis for this admission?: Yes Plan: 01/12/20-patient has history of COPD on 3 L of oxygen admitted with acute on chronic respiratory failure with hypoxia and hypercapnia. Plan is to decrease the dose of IV Solu-Medrol to continue Xopenex nebulizations. 01/13/2066-65-lgmo-old female with history of COPD on 3 L of oxygen, chronic smoker admitted for acute on chronic respiratory failure with hypoxia and hypercapnia. Pulse ox 97% on 3 L. No acute events in the last 24 to 48 hours. Patient is stable to go home today. Patient is advised to follow-up with client renewal specialist (3) Hypertension Qualifiers: Hypertension type: essential hypertension Qualified Code(s): I10 - Essential (primary) hypertension Is this a current diagnosis for this admission?: No Plan: 01/12/2020-patient has history of chronic essential hypertension blood pressure today is 156/84. Stable. 01/13/2020-blood pressure today is 142/73. Stable. (4) Hyperkalemia Is this a current diagnosis for this admission?: Yes Plan: 01/12/2020-latest serum potassium is 4.6. Within normal limits. 01/13/2020-serum potassium is 4.7. Stable. (5) Depression Qualifiers: Depression Type: unspecified Qualified Code(s): F32.9 - Major depressive disorder, single episode, unspecified Is this a current diagnosis for this admission?: Yes (6) Hyperthyroidism Is this a current diagnosis for this admission?: Yes Plan: 01/12/2020-patient is receiving methimazole for hyperthyroidism patient need to see environmental studies professor as an outpatient. 01/13/2020-patient is given a prescription for methimazole and she is strongly advised to follow-up with PCP for referral to environmental studies professor. She understood and verbalized the response. - Additional Information Resuscitation Status: Do Not Resuscitate Discharge Diet: Cardiac Discharge Activity: Activity As Tolerated Referrals: COREY BENEDICT MD [ACTIVE STAFF] - 01/19/20 2:30 pm Prescriptions: Methimazole [Tapazole 5 mg Tablet] 5 mg PO Q8 30 Days #90 tablet Atenolol [Tenormin 50 mg Tablet] 25 mg PO Q12 30 Days #60 tablet Home Medications: Albuterol Sulfate [Albuterol Sulfate Hfa] 2 puff IH Q4HP PRN 01/08/20 Budesonide/Formoterol Fumarate [Symbicort HFA 160-4.5 mcg Inhaler 6 gm] 2 puff IH Q12 01/08/20 Cetirizine HCl [Zyrtec 10 mg Tablet] 10 mg PO DAILY 01/08/20 Escitalopram Oxalate [Lexapro 10 mg Tablet] 20 mg PO QHS 01/08/20 Fluticasone Propionate [Flonase Nasal [place] 50 Mcg/[place] 16 gm] 2 spray NAREB DAILY 01/08/20 Ipratropium/Albuterol Sulfate [Duoneb 3 ml Ampul] 3 ml NEB RTQ4HP PRN 01/08/20 Lisinopril [Prinivil 5 mg Tablet] 5 mg PO DAILY 01/08/20 Montelukast Sodium [Singulair 10 mg Tablet] 10 mg PO QHS 01/08/20 Roflumilast [Daliresp 500 Mcg Tablet] 500 mcg PO DAILY 01/08/20 Tiotropium [place] [Spiriva Handihaler 5 Cap/Kit (18 Mcg/Cap)] 1 cap IH DAILY 01/08/20 Atenolol [Tenormin 50 mg Tablet] 25 mg PO Q12 30 Days #60 tablet 01/13/20 Methimazole [Tapazole 5 mg Tablet] 5 mg PO Q8 30 Days #90 tablet 01/13/20 History of Present Illiness History of Present Illness: BEN ADRIAN is a 49 year old female 49 year old female with severe COPD that history of heart disease states that since her discharge from [facility] in mid November she has had a cough and has not felt much better. At 230 this morning she began to have severe shortness of breath. She has coughing but it is not productive. She denies fever or chills. Chest x-ray shows very hyperinflated lungs but no infiltrates. White blood cell count is only 10.7. She is afebrile. She will be admitted for acute exacerbation of COPD. Hospital Course Hospital Course: 49 year old female with severe COPD that history of heart disease states that since her discharge from [facility] in mid November she has had a cough and has not felt much better. At 230 this morning she began to have severe shortness of breath. She has coughing but it is not productive. She denies fever or chills. Chest x-ray shows very hyperinflated lungs but no infiltrates. White blood cell count is only 10.7. She is afebrile. She will be admitted for acute exacerbation of COPD. 01/09/20-Still tachypneic but she reports that she is feeling slightly better. FiO2 is down to 30% on BiPAP. 01/10/20-Feels about the same but FiO2 is down to 25%. When I sat her up to auscultate she had a coughing jag that made her very short of breath. 01/11/20-Patient is actually on nasal cannula this morning at 3 L. She was on 5 L earlier. She has been off the BiPAP this morning. She still reports that with coughing spasms she desaturates rapidly. She also experiences weakness after a coughing spasm. 01/11/[id number]-ueau-old female with history of COPD on 3 L of oxygen admitted with COPD exacerbation. Pulse ox is 99% on 3 L this morning. Patient is on 3 L of oxygen at home. She follows with the client renewal specialist and pulse ox well. Patient prefers to stay another day to continue the present management. No acute events in the last 24 hours and patient is afebrile. 01/13/20-no acute events in the last 24 hours. Patient is doing well. Pulse ox is 97% 3 L. Patient uses 3 L of oxygen at home on daily basis. Acute on chronic respiratory failure with hypoxia resolved. Physical Exam Vital Signs: Temp Pulse Resp BP Pulse Ox 98.1 F 72 21 H 168/76 H 99 01/13/20 08:35 01/13/20 08:35 01/13/20 08:35 01/13/20 08:35 01/13/20 08:35 Pulse Oximeter Nocturnal Start: 01/10/20 19:16 Freq: RTQ4 Status: Complete Protocol: Document 01/11/20 04:50 DBE (Rec: 01/11/20 05:10 DBE [id number]) Nocturnal Pulse Oximetry Equipment Usage Equipment in Use Oxygen Delivery Method (includes room Nasal Cannula air) O2 Sat by Pulse Oximetry (92-100) 100 Continuous SpO2 Machine # 3 Other pt desatted to low 80s on 3L/ NC and the nurse increased her O2 to 4L/NC Intake & Output 01/12/20 01/13/20 01/14/20 06:59 06:59 06:59 Intake Total 500 970 240 Output Total 0 Balance 500 970 240 Weight 47.5 kg 47.8 kg General appearance: PRESENT: no acute distress, cooperative, thin Head exam: PRESENT: atraumatic Eye exam: PRESENT: PERRLA Mouth exam: PRESENT: moist, tongue midline Teeth exam: PRESENT: poor dentation Neck exam: ABSENT: carotid bruit, JVD, lymphadenopathy, thyromegaly Respiratory exam: PRESENT: decreased breath sounds Cardiovascular exam: PRESENT: tachycardia GI/Abdominal exam: PRESENT: normal bowel sounds, soft. ABSENT: distended, guarding, mass, organolmegaly, rebound, tenderness Rectal exam: PRESENT: deferred Extremities exam: PRESENT: full ROM. ABSENT: calf tenderness, clubbing, pedal edema Neurological exam: PRESENT: alert, awake, oriented to person, oriented to place, oriented to time, oriented to situation, CN II-XII grossly intact. ABSENT: motor sensory deficit Skin exam: PRESENT: dry, intact, warm. ABSENT: cyanosis, rash Results Laboratory Results: WBC 8.6 10^3/uL (4.0-10.5) 01/13/20 07:03 RBC 3.97 10^6/uL (3.72-5.28) 01/13/20 07:03 Hgb 11.0 g/dL (12.0-15.5) L 01/13/20 07:03 Hct 33.9 % (36.0-47.0) L 01/13/20 07:03 MCV 85 fl (80-97) 01/13/20 07:03 MCH 27.7 pg (27.0-33.4) 01/13/20 07:03 MCHC 32.5 g/dL (32.0-36.0) 01/13/20 07:03 RDW 15.5 % (11.5-14.0) H 01/13/20 07:03 Plt Count 423 10^3/uL (150-450) 01/13/20 07:03 Lymph % (Auto) 7.0 % (13-45) L 01/13/20 07:03 [place] % (Auto) 9.1 % (3-13) 01/13/20 07:03 Eos % (Auto) 0.0 % (0-6) 01/13/20 07:03 Baso % (Auto) 0.2 % (0-2) 01/13/20 07:03 Absolute Neuts (auto) 7.2 10^3/uL (1.7-8.2) 01/13/20 07:03 Absolute Lymphs (auto) 0.6 10^3/uL (0.5-4.7) 01/13/20 07:03 Absolute Monos (auto) 0.8 10^3/uL (0.1-1.4) 01/13/20 07:03 Absolute Eos (auto) 0.0 10^3/uL (0.0-0.6) 01/13/20 07:03 Absolute Basos (auto) 0.0 10^3/uL (0.0-0.2) 01/13/20 07:03 Seg Neutrophils % 83.7 % (42-78) H 01/13/20 07:03 Carbonic Acid 1.45 mmol/L (1.05-1.35) H 01/09/20 06:11 HCO3/H2CO3 Ratio 17:1 01/09/20 06:11 ABG pH 7.35 (7.35-7.45) 01/09/20 06:11 ABG pCO2 48.3 mmHg (35-45) H 01/09/20 06:11 ABG pO2 91.2 mmHg (80-100) 01/09/20 06:11 ABG HCO3 25.9 mmol/L (20-24) H 01/09/20 06:11 ABG Total CO2 27.4 mmol/L (21-25) H 01/09/20 06:11 ABG O2 Saturation 96.5 % (94-98) 01/09/20 06:11 ABG Base Excess 0 mmol/L 01/09/20 06:11 FiO2 30% 01/09/20 06:11 Sodium 137.0 mmol/L (137-145) 01/13/20 07:03 Potassium 4.7 mmol/L (3.6-5.0) 01/13/20 07:03 Chloride 95 mmol/L (98-107) L 01/13/20 07:03 Carbon Dioxide 36 mmol/L (22-30) H 01/13/20 07:03 Anion Gap 6 (5-19) 01/13/20 07:03 BUN 16 mg/dL (7-20) 01/13/20 07:03 Creatinine 0.57 mg/dL (0.52-1.25) 01/13/20 07:03 Est GFR ( Amer) > 60 (>60) 01/13/20 07:03 Est GFR (MDRD) Non-Af > 60 (>60) 01/13/20 07:03 Glucose 136 mg/dL (75-110) H 01/13/20 07:03 Hemoglobin A1c % 4.4 % (4.7-6.0) L 01/08/20 11:43 Calcium 9.3 mg/dL (8.4-10.2) 01/13/20 07:03 Magnesium 2.4 mg/dL (1.6-2.3) H 01/13/20 07:03 Total Bilirubin 0.6 mg/dL (0.2-1.3) 01/13/20 07:03 Direct Bilirubin 0.3 mg/dL (0.0-0.4) 01/13/20 07:03 Neonat Total Bilirubin Not Reportable 01/13/20 07:03 Neonat Direct Bilirubin Not Reportable 01/13/20 07:03 Neonat Indirect Bili Not Reportable 01/13/20 07:03 AST 57 U/L (14-36) H 01/13/20 07:03 ALT 122 U/L (<35) H 01/13/20 07:03 Alkaline Phosphatase 41 U/L (38-126) 01/13/20 07:03 Creatine Kinase 294 U/L (30-135) H 01/08/20 11:43 CK-MB (CK-2) 5.34 ng/mL (<4.55) H 01/08/20 11:43 Troponin I < 0.012 ng/mL 01/08/20 11:43 Total Protein 6.6 g/dL (6.3-8.2) 01/13/20 07:03 Albumin 4.1 g/dL (3.5-5.0) 01/13/20 07:03 TSH 0.07 uIU/mL (0.47-4.68) L 01/09/20 04:45 Urine Color YELLOW 01/09/20 01:45 Urine Appearance SLIGHTLY-CLOUDY 01/09/20 01:45 Urine pH 7.0 (5.0-9.0) 01/09/20 01:45 Ur Specific [place] 1.009 01/09/20 01:45 Urine Protein 30 mg/dL (NEGATIVE) H 01/09/20 01:45 Urine Glucose (UA) NEGATIVE mg/dL (NEGATIVE) 01/09/20 01:45 Urine Ketones 20 mg/dL (NEGATIVE) H 01/09/20 01:45 Urine Blood LARGE (NEGATIVE) H 01/09/20 01:45 Urine Nitrite NEGATIVE (NEGATIVE) 01/09/20 01:45 Urine Bilirubin NEGATIVE (NEGATIVE) 01/09/20 01:45 Urine Urobilinogen NEGATIVE mg/dL (<2.0) 01/09/20 01:45 Ur Leukocyte Esterase NEGATIVE (NEGATIVE) 01/09/20 01:45 Urine WBC (Auto) 3 /HPF 01/09/20 01:45 Urine RBC (Auto) 0 /HPF 01/09/20 01:45 U Hyaline Cast (Auto) 1 /LPF 01/09/20 01:45 Urine Bacteria (Auto) 2+ /HPF 01/09/20 01:45 Squamous Epi Cells Auto 3 /HPF 01/09/20 01:45 Urine Mucus (Auto) OCC /LPF 01/09/20 01:45 Urine Ascorbic Acid NEGATIVE (NEGATIVE) 01/09/20 01:45 01/08/20 11:43 CK-MB (CK-2) 5.34 H Troponin I < 0.012 Impressions: Chest X-Ray 01/08/20 11:35 IMPRESSION: Obstructive lung disease. No acute infiltrates. Plan Plan of Treatment: Patient is advised to quit smoking and follow-up with the primary care physician for hypothyroidism follow-up and also advised to follow-up with her pulmonologis t to arrange for BiPAP. Time Spent: Greater than 30 Minutes Stroke Is this a Stroke Patient?: No Acute Heart Failure Is this a Heart Failure Patient?: No
[2020-01-13 13:49] VITALS: BP 142/73
== END 2020-01-13 15:01 | disposition home or self-care (01) | DRG 189 ==
LOC: ER 11:28 → EH 16:43 → 3S 18:36 → 5 01-09 02:22
PROVIDERS: ADMIT Hospitalist; ATTEND Internal Medicine
PROC: 5A09557 Assistance with Respiratory Ventilation, Greater than 96 Consecutive Hours, Continuous Positive Airway Pressure (ICD-10-PCS; principal; 2020-01-08)
DX: J96.21 Acute and chronic respiratory failure with hypoxia (principal); J44.1 Chronic obstructive pulmonary disease with (acute) exacerbation; J96.22 Acute and chronic respiratory failure with hypercapnia; I25.10 Atherosclerotic heart disease of native coronary artery without angina pectoris; I10 Essential (primary) hypertension; E87.5 Hyperkalemia; F32.9 Major depressive disorder, single episode, unspecified; E21.3 Hyperparathyroidism, unspecified; R73.9 Hyperglycemia, unspecified; D64.9 Anemia, unspecified; Z66 Do not resuscitate; Z79.899 Other long term (current) drug therapy; Z79.51 Long term (current) use of inhaled steroids; Z82.49 Family history of ischemic heart disease and other diseases of the circulatory system; Z80.9 Family history of malignant neoplasm, unspecified; Z82.3 Family history of stroke; Z88.0 Allergy status to penicillin; Z87.891 Personal history of nicotine dependence
CPT/HCPCS: 36415; 36600; 71045; 80048; 80053; 81001; 82550; 82553; 82803; 83036; 83735; 84443; 84484; 85025; 85027; 93005; 93010; 94640; 94660; 94762; 99285; J1644; J2270; J2920; J2930; J3490; J7120; J7613; J7614; J7644